=== PATIENT | male | born 1980 | race Caucasian/White ===

== ENCOUNTER 2022-01-10 07:46 | Emergency (ER) | payer OTHER ==
[2022-01-10 09:21] LABS: HEMOGLOBIN 13.5 gm/dl (14.0-17.5); RED BLOOD COUNT 4.38 M/UL (4.20-5.50); WHITE BLOOD COUNT 9.8 K/UL (4.5-11.0)
[2022-01-10 09:46] LABS: BUN/CREATININE RATIO 20 (0-10)
== END 2022-01-10 19:55 | disposition short-term general hospital (02) ==
LOC: ER1 07:46
PROVIDERS: Physician Assistant
DX: R45.851 Suicidal ideations (principal); F15.10 Other stimulant abuse, uncomplicated; F17.290 Nicotine dependence, other tobacco product, uncomplicated; Z88.1 Allergy status to other antibiotic agents; Z20.822 Contact with and (suspected) exposure to COVID-19
CPT/HCPCS: 80053; 80307; 81001; 82550; 82553; 83874; 85025; 93005; 99285; G0480; Q0177; U0002